=== PATIENT | male | born 1960 | race African-American/Black ===

== ENCOUNTER → 2018-08-22 | Outpatient (CLI) | payer OTHER ==
--- NOTE | 2018-08-22 15:31 | DIREP ---
PROCEDURE:XRAY SINUSES PARANASAL<3 VWS COMPARISON:None. INDICATIONS:SINUSITIS TECHNIQUE: Three views FINDINGS: MAXILLARY:Normal. No mucosal thickening or fluid level. ETHMOID:Normal. No mucosal thickening or fluid level. FRONTAL:Normal. No mucosal thickening or fluid level. SPHENOID:Normal. No mucosal thickening or fluid level. OTHER:Negative. CONCLUSION: 1. The paranasal sinuses appear clear. Dictated by: South Romo M.D. on 08/22/2018 at 03:30 PM
== END | disposition home or self-care (01) ==
LOC: RAD 14:18
DX: J32.9 Chronic sinusitis, unspecified (principal)
CPT/HCPCS: 70220